=== PATIENT | female | born 1960 | race Caucasian/White ===

== ENCOUNTER → 2016-11-19 | Outpatient (CLI) | payer OTHER ==
[~2016-11-19] MED LIST: ASPI325T PO; DIPH1TAB36 PO; EXCEDRIN PO; LEVO.125 PO; MELO15TA2 PO; ROSU10 PO; TRAM50 PO
[2016-11-19 13:30] LABS: ALKALINE PHOSPHATASE 88 U/L (45-117); ALT (GPT) 84 U/L (10-53); ANION GAP 5 MEQ/L (5-15); AST (GOT) 44 U/L (15-37); BICARBONATE 30.7 MEQ/L (21.0-32.0); BLOOD UREA NITROGEN 12 MG/DL (7-18); CHLORIDE 105 MEQ/L (98-107); FREE T3 2.62 PG/ML (2.18-3.98); GLOMERULAR FILTRATION RATE 55 ML/MIN (>89); GLUCOSE,FASTING 103 MG/DL (74-99); POTASSIUM 4.9 MEQ/L (3.5-5.1); SODIUM (NA) 141 MEQ/L (136-145); TOTAL BILIRUBIN ADULT 0.8 MG/DL (0.2-1.0)
== END ==
LOC: PLAB 11:30
PROVIDERS: ATTEND Family Medicine
DX: R74.0 Nonspecific elevation of levels of transaminase and lactic acid dehydrogenase [LDH] (principal); E03.9 Hypothyroidism, unspecified
CPT/HCPCS: 80053; 84443; 84481

== ENCOUNTER → 2016-12-21 | Outpatient (CLI) | payer OTHER ==
[2016-12-21 16:50] LABS: ANION GAP 6 MEQ/L (5-15); AST (GOT) 26 U/L (15-37); BICARBONATE 30.5 MEQ/L (21.0-32.0); BLOOD UREA NITROGEN 19 MG/DL (7-18); CHLORIDE 104 MEQ/L (98-107); GLOMERULAR FILTRATION RATE 59 ML/MIN (>89); POTASSIUM 4.4 MEQ/L (3.5-5.1); SODIUM (NA) 140 MEQ/L (136-145)
[2016-12-21 16:55] LABS: ALKALINE PHOSPHATASE 92 U/L (45-117); ALT (GPT) 58 U/L (10-53); FERRITIN 32 NG/ML (8-252); TOTAL BILIRUBIN ADULT 1.1 MG/DL (0.2-1.0)
[2016-12-24 14:10] LABS: HCV RNA PCR IU/ML LESS THAN 15 IU/mL (()); HCV RNA PCR LOGIU/ML LESS THAN 1.18 (())
[2016-12-24 15:52] LABS: HEP B DNA R1 LESS THAN 20 IU/mL (()); HEP B DNA R2 LESS THAN 1.30 (()); IGA SERUM 78 mg/dL (81-463)
[2016-12-25 03:49] LABS: TISSUE TRANSGLUTAMINASE AB IGG LESS THAN 1 U/mL (())
[2016-12-25 07:51] LABS: MITOCHONDRIAL ABS LESS THAN 20.0 U (())
[2016-12-26 13:52] LABS: ENDOMYSIAL AB TITER ND (<1:5); TISSUE TRANSGLUTAMINASE AB LESS THAN 1 U/mL (())
== END ==
LOC: PLAB 13:24
PROVIDERS: ATTEND Internal Medicine Gastroenterology
DX: R94.5 Abnormal results of liver function studies (principal)
CPT/HCPCS: 80053; 82390; 82728; 82784; 83516; 83520; 86038; 86256; 86376; 87517; 87522

== ENCOUNTER → 2017-03-09 | Outpatient (CLI) | payer OTHER ==
--- NOTE | 2017-03-09 10:50 | RADRPT ---
EXAM DATE/TIME: 03/09/2017 00:00 [place] COMPARISON: No previous studies available for comparison. INDICATIONS : Dysphagia, choling intermittantly. FLUORO TIME: 0.9 minutes IMAGE COUNT: 0 CONTRAST: Dose as prescribed by speech pathologist. MEDICAL HISTORY : None. SURGICAL HISTORY : dilitation 18 years ago ENCOUNTER: Initial ACUITY: 4 - 6 months PAIN SCORE: 0/10 LOCATION: Bilateral neck FINDINGS: A modified barium swallow was performed with speech pathology. Patient was given a variety of liquids to swallow. No aspiration or penetration is identified For a full detailed report, see report by the speech pathologist. CONCLUSION: 1. Barium swallow as above Dion Concepcion MD on March 09, 2017 at 10:49 Board Certified Radiologist. This report was verified electronically.
== END ==
LOC: HRAD 09:44
PROVIDERS: ATTEND Internal Medicine Gastroenterology
DX: R13.10 Dysphagia, unspecified (principal)
CPT/HCPCS: 74230; 92611; G8996; G8997; G8998

== ENCOUNTER → 2017-04-04 | Outpatient (CLI) | payer OTHER ==
[2017-04-04 17:29] LABS: ANION GAP 7 MEQ/L (5-15); AST (GOT) 20 U/L (15-37); BICARBONATE 27.7 MEQ/L (21.0-32.0); BLOOD UREA NITROGEN 11 MG/DL (7-18); CHLORIDE 108 MEQ/L (98-107); GLOMERULAR FILTRATION RATE 63 ML/MIN (>89); GLUCOSE,FASTING 94 MG/DL (74-99); POTASSIUM 5.1 MEQ/L (3.5-5.1); SODIUM (NA) 143 MEQ/L (136-145)
[2017-04-04 17:30] LABS: ALT (GPT) 33 U/L (10-53)
[2017-04-04 17:40] LABS: ALKALINE PHOSPHATASE 73 U/L (45-117); HDL CHOLESTEROL 75.8 MG/DL (40.0-60.0); LDL CHOLESTEROL 134 MG/DL (0-99)
== END ==
LOC: PLAB 13:30
PROVIDERS: ATTEND Family Medicine
DX: I10 Essential (primary) hypertension (principal); E03.9 Hypothyroidism, unspecified; E78.00 Pure hypercholesterolemia, unspecified
CPT/HCPCS: 80053; 80061; 84443

== ENCOUNTER → 2017-08-10 | Outpatient (CLI) | payer OTHER ==
[~2017-08-10] VITALS: Ht 167.6 cm; Wt 93.4 kg
[~2017-08-10] MED LIST changes: +ASPI81TA11 PO; +CHLORHEXIDINE GLUCONATE 2 % 1 PACK (2 CLOTHS) TOPICAL PRN; +INSULIN HUMAN REGULAR 1,000 UNITS/10 ML VIAL SQ PRN; +LACTATED RINGER'S 1000 ML INJ 1,000 ML ONE; +LACTATED RINGER'S 1000 ML IV PRN; +LIDOCAINE HCL 1% PF 5 ML AMPULE ONE; +METOPROLOL TARTRATE 25 MG TAB PO PRN; +POVIDONE IODINE 5% (ANTISEPSIS KIT) 4 APPLICATIONS EACH NARE PRN; +PROPOFOL 500 MG/50 ML INJ 50 ML ONE; +SODIUM CHLORID 0.9% 500 ML IV PRN
[2017-08-10 14:02] VITALS: BP 134/77; PULSE 56; RESP 16; TEMP 97.6; O2SAT 97
--- NOTE | 2017-08-10 15:37 | MR ---
cc: IZABELA ASHFORD DATE: 08/10/2017 PROCEDURE Upper endoscopy with biopsy and esophageal dilatation. INDICATION FOR PROCEDURE The patient presents with a history of dysphagia. PHOTOGRAPHS AND BIOPSIES Photographs were taken. Biopsies were taken. PREMEDICATION Administered by anesthesiology. MONITORING Monitoring was accomplished with pulse oximeter, EKG and blood pressure monitor. PROCEDURE NOTE After informed consent was obtained and the procedure, risks, and benefits were explained including risks of bleeding, sepsis, perforation, risk of anesthesia, the patient was placed in the left lateral position. The video endoscope was inserted into the esophagus under direct visualization. The esophagus itself appeared to be normal throughout with a normal Z-line. Biopsies were taken in the proximal to mid esophagus to rule out eosinophilic esophagitis. The stomach was entered. The gastric mucosa was normal. In the retroflex view the cardia and fundus were normal. The pylorus was patent. The first, second and third portion of the duodenum were unremarkable. A wire was then placed in the distal antrum and esophageal dilator 17 mL was passed successfully with minimal resistance. The patient tolerated the procedure well. No immediate complications were noted. IMPRESSION Essentially unremarkable panendoscopy status post biopsy and dilatation of the esophagus. The patient was dilated to 17 mm. PLAN Advance the patient's diet as tolerated. Will follow the biopsies. Follow-up clinically as an outpatient for further recommendations. MD NIEVES Olsen/CARLOS /2:16 PM /3:25 PM
--- NOTE | 2017-08-11 11:30 | EKG ---
Date Performed: 08/10/2017 Time Performed: 12:08:16 PTAGE: 57 years EKG: SINUS BRADYCARDIA LOW QRS VOLTAGE IN PRECORDIAL LEADS BORDERLINE ECG Compared to prior trac ing no significant change PREVIOUS TRACING : 05/31/2011 08.09 DOCTOR: Martin Narvaez Interpretating Date/Time 08/11/2017 11:27:24
== END ==
LOC: HEND 11:18
PROVIDERS: ATTEND Internal Medicine Gastroenterology
DX: R13.10 Dysphagia, unspecified (principal); K22.2 Esophageal obstruction; Z87.891 Personal history of nicotine dependence; Z01.810 Encounter for preprocedural cardiovascular examination
CPT/HCPCS: 00740; 43239; 43248; 88305; 93005; C1769; J7120

== ENCOUNTER → 2018-02-01 | Outpatient (CLI) | payer OTHER ==
[~2018-02-01] MED LIST changes: -ASPI325T PO; -ASPI81TA11 PO; +ASPI81TA23 PO; -CHLORHEXIDINE GLUCONATE 2 % 1 PACK (2 CLOTHS) TOPICAL PRN; -DIPH1TAB36 PO; -EXCEDRIN PO; -INSULIN HUMAN REGULAR 1,000 UNITS/10 ML VIAL SQ PRN; -LACTATED RINGER'S 1000 ML INJ 1,000 ML ONE; -LACTATED RINGER'S 1000 ML IV PRN; -LIDOCAINE HCL 1% PF 5 ML AMPULE ONE; -MELO15TA2 PO; -METOPROLOL TARTRATE 25 MG TAB PO PRN; -POVIDONE IODINE 5% (ANTISEPSIS KIT) 4 APPLICATIONS EACH NARE PRN; -PROPOFOL 500 MG/50 ML INJ 50 ML ONE; -SODIUM CHLORID 0.9% 500 ML IV PRN; -TRAM50 PO
[2018-02-01 14:47] LABS: AUTOMATED NEUTROPHIL # 3.3 TH/MM3 (1.8-7.7); BASOPHIL % 0.7 % (0.0-2.0); EOSINOPHIL # 0.1 TH/MM3 (0-0.4); EOSINOPHIL % 1.8 % (0.0-4.0); HEMATOCRIT 41.8 % (35.0-46.0); HEMOGLOBIN 14.2 GM/DL (11.6-15.3); LYMPH % 25.3 % (9.0-44.0); LYMPHOCYTE # 1.3 TH/MM3 (1.0-4.8); MEAN CELL VOLUME 87.2 FL (80.0-100.0); MEAN CORPUSCULAR HEMOGLOBIN 29.7 PG (27.0-34.0); MEAN PLATELET VOLUME 8.7 FL (7.0-11.0); MONO % 7.1 % (0.0-8.0); MONOCYTE # 0.4 TH/MM3 (0-0.9); NEUT % 65.1 % (16.0-70.0); PLATELET COUNT 229 TH/MM3 (150-450); RED BLOOD COUNT 4.79 MIL/MM3 (4.00-5.30); RED CELL DISTRIBUTION WIDTH 13.2 % (11.6-17.2)
[2018-02-01 15:00] LABS: ALBUMIN 3.9 GM/DL (3.4-5.0); AST (GOT) 37 U/L (15-37); BICARBONATE 27.2 MEQ/L (21.0-32.0); BLOOD UREA NITROGEN 17 MG/DL (7-18); CALCIUM 8.9 MG/DL (8.5-10.1); CHLORIDE 108 MEQ/L (98-107); CHOLESTEROL 131 MG/DL (120-200); GLOMERULAR FILTRATION RATE 64 ML/MIN (>89); GLUCOSE,FASTING 83 MG/DL (74-99); SODIUM (NA) 142 MEQ/L (136-145)
[2018-02-01 15:12] LABS: ALKALINE PHOSPHATASE 84 U/L (45-117); ALT (GPT) 75 U/L (10-53); HDL CHOLESTEROL 68.6 MG/DL (40.0-60.0); LDL CHOLESTEROL 49 MG/DL (0-99); TOTAL BILIRUBIN ADULT 1.2 MG/DL (0.2-1.0); TOTAL PROTEIN 7.1 GM/DL (6.4-8.2); TRIGLYCERIDES 65 MG/DL (42-150)
== END ==
LOC: PLAB 11:09
PROVIDERS: ATTEND Family Medicine
DX: I10 Essential (primary) hypertension (principal); E03.9 Hypothyroidism, unspecified; E78.00 Pure hypercholesterolemia, unspecified
CPT/HCPCS: 36415; 80053; 80061; 84443; 85025

== ENCOUNTER → 2018-03-13 | Outpatient (CLI) | payer OTHER ==
[2018-03-13 18:43] LABS: BILIRUBIN, URINE NEG (NEG); GLUCOSE,URINE NEG (NEG); KETONE, URINE NEG (NEG); NITRITE,URINE NEG (NEG); PH, URINE 5.5 (5.0-8.5); URINE COLOR YELLOW (YELLW/STRAW); URINE LEUKOCYTE ESTERASE TRACE (NEG)
[2018-03-13 18:52] LABS: BLOOD, URINE TRACE (NEG)
[2018-03-13 19:01] LABS: SQUAMOUS EPITHELIAL CELL URINE <1 /hpf (0-5)
== END ==
LOC: PLAB 15:18
PROVIDERS: ATTEND Family Medicine
DX: N39.0 Urinary tract infection, site not specified (principal)
CPT/HCPCS: 81001; 87086